=== PATIENT | female | born 1950 | race Caucasian/White ===

== ENCOUNTER 2018-10-21 07:57 | Day surgery (SDC) | payer MEDICARE ==
[2018-10-19 14:41] VITALS: BMI 27.1
[~2018-10-21 07:57] MED LIST: DEXAMETHASONE SOD PHOSPHATE 10 MG/ML 1 ML VIAL IV ONE; HEPARIN SODIUM,PORCINE 5,000 UNIT/ML 1 ML VIAL SQ ONE; HYDROmorphone 0.5 MG/0.5 ML SYRINGE IVP PRN; LACTATED RINGERS 1,000 ML IV SCH; LIDOCAINE 1% 20 ML VIAL (10MG/ML) FOR IV START INTRADERMA PRN; ONDANSETRON 4 MG/2 ML VIAL IVP ONE; Pre Op ABX Message 1 EACH MISC MISCELLANE ONE
[2018-10-21 08:38] LABS: Glucose,Whole Blood 116 mg/dL (75-99)
[2018-10-21] MEDS ORDERED: LIDOCAINE 1% 20 ML VIAL (10MG/ML) FOR IV START INTRADERMA ONE (08:38)
[2018-10-21 08:46] VITALS: RESP 16; TEMP 98.3
--- NOTE | 2018-10-21 09:15 | P.GSHP ---
History of Present Illness H&P Date: 10/21/18 Chief Complaint: Myopathy This is a 68-year-old female undergoing workup of myopathy. Patient presents today for left thigh muscle biopsy. Past Medical History Past Medical History: Coronary Artery Disease (CAD), Diabetes Mellitus, Hearing Disorder / Deafness, Hyperlipidemia, Osteoarthritis (OA), Thyroid Disorder Additional Past Medical History / Comment(s): MUSCLE WEAKNESS, BONNIE LT ARM/LEG SINCE 05/2018. HANDS GET VERY COLD. History of Any Multi-Drug Resistant Organisms: None Reported Past Surgical History: Bladder Surgery, Coronary Bypass/CABG, Heart Catheterization With Stent, Orthopedic Surgery Additional Past Surgical History / Comment(s): TRIPLE CABG 2008. RT 2ND TOE AMP 2017. АНДРЕЙ CAROTID ENDARTERECTOMY 2017. АНДРЕЙ CATARACTS. ROBOTIC BLADDER SUSPENSION 10 DAYS AGO. Past Anesthesia/Blood Transfusion Reactions: No Reported Reaction Date of Last Stent Placement:: 2015 EST Smoking Status: Never smoker - Past Family History Mother Family Medical History: No Reported History Medications and Allergies Home Medications Medication Instructions Recorded Confirmed Type Acetaminophen [Tylenol Arthritis] 650 mg PO Q6H PRN 10/19/18 10/21/18 History Aspirin [Adult Low Dose Aspirin EC] 81 mg PO DAILY 10/19/18 10/21/18 History Calcium Carbonate/Vitamin D3 1 each PO DAILY 10/19/18 10/21/18 History [Calcium 500-Vit D3 600 Tablet] Carvedilol [Coreg] 25 mg PO BID 10/19/18 10/21/18 History Cholecalciferol [Vitamin D3] 1,000 unit PO BID 10/19/18 10/21/18 History Clopidogrel [Plavix] 75 mg PO DAILY 10/19/18 10/21/18 History Cyanocobalamin (Vitamin B-12) 1,000 mcg PO DAILY 10/19/18 10/21/18 History [Vitamin B-12] DULoxetine HCL 40 mg PO HS 10/19/18 10/21/18 History Glimepiride [Amaryl] 4 mg PO BID 10/19/18 10/21/18 History Insulin Glargine,Hum.rec.anlog 12 unit SQ [id number] 10/19/18 10/21/18 History [Lantus Solostar] Levothyroxine Sodium [Synthroid] 50 mcg PO DAILY 10/19/18 10/21/18 History Losartan Potassium [Cozaar] 25 mg PO DAILY 10/19/18 10/21/18 History Magnesium Oxide [Mag-Ox] 800 mg PO BID 10/19/18 10/21/18 History [place]-3 Fatty Acids/Fish Oil [Fish 1 each PO BID 10/19/18 10/21/18 History Oil 1,000 mg Softgel] metFORMIN HCL [Glucophage] 1,000 mg PO BID 10/19/18 10/21/18 History Allergies Allergy/AdvReac Type Severity Reaction Status Date / Time No Known Allergies Allergy Verified 10/21/18 08:40 Surgical - Exam Vital Signs Temp Pulse Resp BP Pulse Ox 98.3 F 67 16 138/65 97 10/21/18 08:30 10/21/18 08:30 10/21/18 08:30 10/21/18 08:30 10/21/18 08:30 - General well developed, well nourished, no distress - Eyes PERRL - ENT normal pinna - Neck no masses - Respiratory normal expansion - Cardiovascular Rhythm: regular - Abdomen Abdomen: soft, non tender - Neurologic normal coordination - Musculoskeletal normal gait Results - Labs Abnormal Lab Results - Last 24 Hours (Table) 10/21/18 Range/Units 08:31 POC Glucose (mg/dL) 116 H (75-99) mg/dL Assessment and Plan Assessment: Myopathy. Will perform left thigh muscle biopsy
[2018-10-21] MEDS ORDERED: PROPOFOL 10 MG/ML 20 ML VIAL IV ONE (09:21)
[2018-10-21] MEDS ORDERED: KETAMINE 10 MG/ML 20 ML VIAL ONE (09:21)
[2018-10-21] MEDS ORDERED: fentaNYL (PF) 50 MCG/ML 2 ML AMP ONE (09:21)
[2018-10-21] MEDS ORDERED: BUPIVACAIN-EPI 0.5%-1:200,000 30 ML VIAL SQ ONE (09:56)
--- NOTE | 2018-10-21 11:05 | P.OP ---
Date of Procedure: 10/21/18 Preoperative Diagnosis: Myopathy Postoperative Diagnosis: Myopathy Procedure(s) Performed: Left thigh muscle biopsy Anesthesia: MAC Surgeon: Fer Madison Estimated Blood Loss (ml): 5 Pathology: other (Left thigh muscle biopsy) Condition: stable Disposition: PACU Description of Procedure: The patient's placed on the operating table in the supine position. She received IV sedation. Her left thigh was prepped and draped usual fashion. Skin anesthetized 1% local Xylocaine. A skin incision was made over the anterior mid thigh. Using left cautery the subcutaneous tissue divided. The fascia was exposed. The fascia was then opened with [employer] months scissors. The muscles visualized. The muscle was then dissected superiorly and distally. A 3 x 1 cm piece of muscle was removed. The muscle was sent to pathology. The muscle edges were suture ligated. The fascia was closed 0 Vicryl. Skin was closed interrupted 3-0 Monocryl suture. Dermabond was applied. Patient top she will was sent to recovery in stable condition.
[2018-10-21 11:27] VITALS: BP 115/67; PULSE 69
== END 2018-10-21 11:52 | disposition home or self-care (01) ==
LOC: OR 07:57
PROVIDERS: ATTEND Surgery
DX: G72.49 Other inflammatory and immune myopathies, not elsewhere classified (principal); G72.41 Inclusion body myositis [IBM]; I25.10 Atherosclerotic heart disease of native coronary artery without angina pectoris; E78.5 Hyperlipidemia, unspecified; I10 Essential (primary) hypertension; E07.9 Disorder of thyroid, unspecified; E11.9 Type 2 diabetes mellitus without complications; H91.90 Unspecified hearing loss, unspecified ear; K21.9 Gastro-esophageal reflux disease without esophagitis; M19.90 Unspecified osteoarthritis, unspecified site; Z95.1 Presence of aortocoronary bypass graft; Z95.5 Presence of coronary angioplasty implant and graft; Z79.02 Long term (current) use of antithrombotics/antiplatelets; Z79.82 Long term (current) use of aspirin; Z79.890 Hormone replacement therapy; Z79.4 Long term (current) use of insulin; Z79.899 Other long term (current) drug therapy
CPT/HCPCS: 20205; J1644; J1100; J2405; J3010; J2704